=== PATIENT | male | born 1950 | race Caucasian/White ===

== ENCOUNTER → 2022-12-10 | Outpatient (CLI) | payer MEDICARE, SELFPAY ==
[2022-12-10 12:08] LABS: Platelet Count 139 K/mm3 (150-450); RET-HE 35.3 pg (30-35)
[2022-12-10 12:39] LABS: Ferritin 49 ng/mL (26-388); Iron 54 ug/dL (65-175); Iron Binding Capacity,Total 294 ug/dL (250-450); PERCENT IRON SATURATION 18.4 % (15.0-55.0)
[2022-12-11 04:07] LABS: Haptoglobin 101 mg/dL (34-355)
== END | disposition home or self-care (01) ==
LOC: MTLAB 10:02
PROVIDERS: PCP Internal Medicine; Referring Provider Internal Medicine; Visit Provider Internal Medicine
DX: D64.9 Anemia, unspecified (principal)
CPT/HCPCS: 36415; 82728; 83010; 83540; 83550; 85045

== ENCOUNTER → 2023-04-14 | Outpatient (CLI) | payer MEDICARE, SELFPAY ==
--- NOTE | 2023-04-14 08:00 | PROSBIL_PTH ---
PATIENT: KELLY MICHELLE LOC: [facility] U#:[id number] AGE/SX: 72/M ROOM: RE04/14/[address]: Dr. Ken Cooper MD : 1950 BED: DIS: 04/14/2023 SPEC #: [id number] RECD: 04/15/23 10:03 STATUS: GERALD KOTA #: [id number] SEEMA: 04/14/23 08:[address]: Ken Cooper DEPT: SURGICAL PATHOLOGY RECD BY: Delmi Hays ENTERED: 04/15/23 10:04 SP TYPE: PROST BX VENITA DR: Dr. Cynthia Reyna DO Tissues: A - PROSTATE RIGHT B - PROSTATE RIGHT C - PROSTATE RIGHT D - PROSTATE LEFT E - PROSTATE LEFT F - PROSTATE LEFT Procedures: PROSTATE BX HEADER OPERATION: Prostate biopsy PRE-OP DIAGNOSIS: Elevated PSA TISSUE SUBMITTED: A - Right apex, B - Right mid, C - Right base, D - Left apex, E - Left mid, F - Left base MICROSCOPIC DIAGNOSIS A. Right prostate, apex, core biopsy: Prostatic adenocarcinoma. Michael grade: 3+4=7 Number of cores involved: 2/2 Proportion of tissue involved: ~60-70% Perineural invasion: Present, focal. Greatest tumor length: 0.7 cm B. Right prostate, mid, core biopsy: Prostatic adenocarcinoma. [place] grade: 3+3=6 Number of cores involved: 1/2 Proportion of tissue involved: ~25% Perineural invasion: Not identified. Greatest tumor length: 0.3 cm See comment. C. Right prostate, base, core biopsy: Prostatic tissue, negative for malignancy. See comment. D. Left prostate, apex, core biopsy: Prostatic adenocarcinoma. [place] grade: 3+3=6 Number of cores involved: 1/2 Proportion of tissue involved: ~20% Perineural invasion: Present, focal. Greatest tumor length: 0.4 cm E. Left prostate, mid, core biopsy: Prostatic adenocarcinoma. [place] grade: 3+3=6 Number of cores involved: 1/2 Proportion of tissue involved: ~10% Perineural invasion: Not identified. Greatest tumor length: 0.2 cm Chronic inflammation. F. Left prostate, base, core biopsy: Prostatic tissue, negative for malignancy. SJ:ryan 04/18/2023 COMMENT B. Seminal vesicle tissue is present in the specimen and free of tumor. C. Seminal vesicle tissue is also present in the specimen. This case has been reviewed in consultation with Dr. Granda who concurs with the above diagnosis. MICROSCOPIC DESCRIPTION Slides are reviewed. GROSS DESCRIPTION A - Received is one container designated prostate, right apex. The specimen consists of two elongated fragments of light celeste-white soft tissue each measuring 1.0 cm in length and 0.1 cm in diameter. The specimen is totally submitted in one cassette. B - Received is one container designated prostate, right mid. The specimen consists of two elongated fragments of light celeste-white soft tissue each measuring 0.6 cm in length and 0.1 cm in diameter. The specimen is totally submitted in one cassette. C - Received is one container designated prostate, right base. The specimen consists of two elongated fragments of light celeste-white soft tissue measuring 0.5 and 1.0 cm in length and 0.1 cm in diameter. The specimen is totally submitted in one cassette. D - Received is one container designated prostate, left apex. The specimen consists of two elongated fragments of light celeste-white soft tissue each measuring 1.2 cm in length and 0.1 cm in diameter. The specimen is totally submitted in one cassette. E - Received is one container designated prostate, left mid. The specimen consists of two elongated fragments of light celeste-white soft tissue each measuring 1.1 cm in length and 0.1 cm in diameter. The specimen is totally submitted in one cassette. F - Received is one container designated prostate, left base. The specimen consists of two elongated fragments of light celeste-white soft tissue measuring 0.6 and 1.1 cm in length and 0.1 cm in diameter. The specimen is totally submitted in one cassette. / NANCY:ryan 04/15/2023 TC:0 CPT: G0146
== END | disposition home or self-care (01) ==
LOC: LABSPEC 16:13
PROVIDERS: PCP Internal Medicine; Referring Provider Urology; Visit Provider Urology
DX: R97.20 Elevated prostate specific antigen [PSA] (principal)
CPT/HCPCS: 88305; G0416

== ENCOUNTER → 2023-06-16 | Outpatient (CLI) | payer MEDICARE, SELFPAY ==
--- NOTE | 2023-06-16 06:35 | ECHOD_ITS ---
Reason For Study: Preop Procedure This was a 2D Doppler, Color Flow transthoracic echocardiogram. Exam performed in department. Left Ventricle Normal LV size. Left ventricular systolic function is normal. The estimated ejection fraction is 60 %. Stage 1 diastolic dysfunction. No regional wall motion abnormalities noted. Right Ventricle Normal RV size. Normal systolic function. Atria Normal left atrium. Normal right atrium. Mitral Valve Normal mitral valve. Mild (1+) mitral valve insufficiency. Tricuspid Valve Normal tricuspid valve. Mild (1+) tricuspid valve insufficiency. Pulmonary artery systolic pressure is 36 mmHg. Aortic Valve Trisinus/trileaflet aortic valve. Mild focal aortic valve calcification. Peak aortic valve gradient 19 mmHg. Mean aortic valve gradient 9 mmHg. Mild aortic stenosis. Mild (1+) aortic valve insufficiency. Pulmonic Valve Normal pulmonic valve. Great Vessels Normal aortic root. The pulmonary artery is normal size. Normal inferior vena cava. Pericardium/Pleural No pericardial effusion. MMode/2D Measurements & Calculations LVIDd: 5.0 cm IVSd: 1.2 cm LVOT diam: 2.0 cm LVIDs: 2.9 cm LVPWd: 1.1 cm LVOT area: 3.2 cm2 RVDd: 3.6 cm FS: 41.0 % Ao root diam: 3.0 cm LAV(MOD-bp): 49.7 ml LVAd ap4: 21.8 cm2 LAV(MOD-bp) Indexed: 24.6 ml/m2 LVLd ap4: 6.5 cm LAV(MOD-sp2): 57.4 ml EDV(MOD-sp4): 60.0 ml LAV(MOD-sp4): 42.4 ml EDV(sp4-el): 61.4 ml LVAs ap4: 10.4 cm2 LVLs ap4: 5.4 cm ESV(MOD-sp4): 17.3 ml ESV(sp4-el): 16.9 ml EF(MOD-sp4): 71.2 % EF(sp4-el): 72.5 % SV(MOD-sp4): 42.7 ml SV(sp4-el): 44.5 ml LA A4 area: 17.5 cm2 LA dimension(2D): 4.0 cm RA A4 area: 14.4 cm2 TAPSE: 2.4 cm Time Measurements MV dec time: 0.32 sec Doppler Measurements & Calculations MV E max hardy: 77.2 cm/sec Lat Peak E' Hardy: 8.0 cm/sec Med Peak E' Hardy: 5.9 cm/sec MV A max hardy: 107.2 cm/sec E/E' lat: 9.6 E/E' med: 13.2 MV E/A: 0.72 Ao V2 max: 217.7 cm/sec AI max hardy: 348.0 cm/sec MV dec slope: 244.9 cm/sec2 Ao max P.0 mmHg AI max P.5 mmHg Ao V2 mean: 145.5 cm/sec Ao mean P.9 mmHg AI dec slope: 126.3 cm/sec2 Ao V2 VTI: 56.4 cm AI P1/2t: 807.3 msec AV (velocity ratio): 0.63 ABBY(I,D): 2.0 cm2 ABBY(V,D): 1.9 cm2 LV V1 max: 130.1 cm/sec SV(LVOT): 114.8 ml PA V2 max: 115.3 cm/sec LV V1 max P.8 mmHg LV V1 mean P.5 mmHg LV V1 mean: 86.1 cm/sec LV V1 VTI: 35.3 cm TR max hardy: 282.0 cm/sec TR max P.8 mmHg ECHO/Echo Complete Interpretation Summary Normal LV size. Left ventricular systolic function is normal. The estimated ejection fraction is 60 %. Stage 1 diastolic dysfunction. Mild focal aortic valve calcification. Mean aortic valve gradient 9 mmHg. Mild aortic stenosis. Ordering Physician: Alfreda Workman Referring Physician: Cynthia Reyna Performed By: Sofie Hogan RDCS, RVT
--- NOTE | 2023-06-16 16:05 | STRESSREP ---
Stress Test Report Pharmacologic myocardial perfusion stress test. 72-year-old man with a history of hypertension preop for prostate surgery. Resting EKG demonstrates sinus bradycardia with a rate of 47 bpm. Resting blood pressure is 122/70 mmHg. 0.4 mg of regadenoson was infused per usual protocol followed by rapid intravenous saline flush injection. Continuous EKG monitoring was performed. The maximum heart rate was 61 bpm which was 40% of max impacted heart rate the maximum workload was 1 metabolic equivalent. At rest there were no ST or T wave changes noted to suggest ischemia and at peak infusion nonspecific ST changes were noted which did not meet the criteria for ischemia. No clinical angina is noted. The final blood pressure was 118/64 mmHg. Myocardial perfusion protocol. 11.8 mCi of technetium 99m sestamibi was injected at rest. 0.4 mg of regadenoson was infused per usual protocol. At peak infusion 35 mCi of technetium 99m sestamibi was injected stress images were obtained stress and rest images were reconstructed and compared in the short axis vertical long and horizontal long axis. Gated images were also obtained. Perfusion SPECT analysis: Review of the stress images demonstrate normal uptake of tracer noted in all areas of the myocardium. The resting images similar demonstrated normal uptake of tracer noted in all areas of the myocardium. No areas of reversibility are noted to suggest ischemia and no previous infarct is noted. Gated SPECT analysis: The gated ejection fraction is 72%. Conclusion: Normal pharmacologic myocardial perfusion stress test. Preserved ejection fraction.
== END | disposition home or self-care (01) ==
PROVIDERS: PCP Internal Medicine; Referring Provider Internal Medicine Cardiovascular Disease; Visit Provider Internal Medicine Cardiovascular Disease
DX: Z01.810 Encounter for preprocedural cardiovascular examination (principal); I34.0 Nonrheumatic mitral (valve) insufficiency; I07.1 Rheumatic tricuspid insufficiency
CPT/HCPCS: 78452; 93017; 93306; A9500; A4216; J2785

== ENCOUNTER 2023-07-06 05:58 | Day surgery (SDC) | payer MEDICARE, SELFPAY ==
[2023-07-06 06:48] VITALS: BP 112/50; PULSE 63; RESP 18; TEMP 36.2; O2SAT 95
[2023-07-06] MEDS: Lactated Ringers 1,000 ML 15 ML IV (06:56)
--- NOTE | 2023-07-06 07:50 | PCM.HP.STD ---
HPI - General General Date of Admission: 07/06/23 Date of Service: 07/06/23 Chief Complaint: Prostate cancer HPI Narrative KELLY MICHELLE, is a 73 M who presents for placement of gold markers and spacer gel he has prostate cancer and plans to have treatment with radiation therapy external beam , He has favorable intermediate risk prostate cancer and no hormone manipulation is recommended. 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 diabetes mellitus Constipation COPD (chronic obstructive pulmonary disease) Depressive disorder Dietary restriction Elevated PSA Gastric reflux Gout High cholesterol History of echocardiogram History of stress test Hypertension Injury of head and neck Insulin dependent diabetes mellitus Leg cramps Obesity On home oxygen therapy NANI (obstructive sleep apnea) Psoriatic arthritis Pulmonary embolism Pulmonary HTN Sjogrens syndrome Syncope Tremor Type 1 diabetes Vitamin D deficiency Wears glasses Home Medications allopurinol 300 mg tablet 300 mg PO BIDCM 04/25/14 [History Last Taken 07/05/23] aspirin 325 mg tablet 325 mg PO DAILY@0800 04/25/14 [History Last Taken 06/28/23] insulin aspart U-100 100 unit/mL (3 mL) subcutaneous pen (Novolog FlexPen U-100 Insulin aspart) 1 sliding scale dose subcut TIDCM 04/25/14 [History Last Taken 07/05/23] lansoprazole 30 mg capsule,delayed release (Prevacid) 30 mg PO DAILY 04/25/14 [History Last Taken 07/06/23] metoprolol succinate 25 mg tablet,extended release 24 hr 25 mg PO DAILY 04/25/14 [History Last Taken 07/06/23] divalproex 500 mg tablet,delayed release 500 mg PO BID 05/02/23 [History Last Taken 07/06/23] latanoprost 0.005 % eye drops 1 drp ophthalmic (eye) DAILY 05/02/23 [History Last Taken 07/05/23] losartan 25 mg tablet 25 mg PO DAILY 05/02/23 [History Last Taken 07/06/23] olanzapine 15 mg tablet (Zyprexa) 20 mg PO QHS 05/02/23 [History Last Taken 07/05/23] simvastatin 10 mg tablet 10 mg PO DAILY 05/02/23 [History Last Taken 07/05/23] benztropine 0.5 mg tablet 0.5 mg PO TID 05/26/23 [History Last Taken 07/05/23] cholecalciferol (vitamin D3) 50 mcg (2,000 unit) tablet (Vitamin D3) 50 mcg PO DAILY 05/26/23 [History Last Taken 07/05/23] insulin glargine 100 unit/mL subcutaneous solution (Lantus U-100 Insulin) 35 unit subcut QHS 06/06/23 [History Last Taken 07/05/23] multivitamin 1 tab PO DAILY 06/06/23 [History Last Taken 07/05/23] clonazepam 1 mg tablet 1 mg PO BID 06/07/23 [History Last Taken 07/06/23] Allergy/AdvReac Type Severity Reaction Status Date / Time ciprofloxacin [From Cipro] Allergy Unknown Verified 07/06/23 06:53 ciprofloxacin HCl Allergy Unknown Verified 07/06/23 06:53 [From Cipro] choline fenofibrate AdvReac Intermediate myalgias Verified 07/06/23 06:53 [From Trilipix] adhesive tape AdvReac Unknown Rash Verified 07/06/23 06:53 tramadol [From Ultram] AdvReac Unknown insomnia Verified 07/06/23 06:53 Family History Father Heart disease Myocardial infarction Brother Heart disease Myocardial infarction Mother Lung cancer Sister Colon cancer Surgical History History of carpal tunnel surgery of right wrist History of ERCP Hx of cholecystectomy Hx of colonoscopy Hx of inguinal hernia repair Hx of total knee replacement Social History household members: spouse Smoking Status: Current some day smoker tobacco type: smokeless tobacco Smokeless tobacco user: chewing tobacco alcohol intake: current substance use type: does not use caffeine: Yes Type: carbonated beverages Number of servings: 12 Vital Signs Vital Signs Vital Signs: 07/06/23 06:48 07/06/23 06:48 Temperature 97.2 F L Temperature Source Temporal Pulse Rate 63 Respiratory Rate 18 Respiratory Pattern Normal Blood Pressure 112/50 L Blood Pressure Mean 70 Blood Pressure Source Monitor Blood Pressure Position Semi-Fowlers Blood Pressure Location Right Arm Pulse Ox 95 Oxygen Delivery Method Room Air Weight Weight: 87 kg Body Mass Index (BMI) 30.0
[2023-07-06] MEDS: Cefazolin 2 GM in 0.9% Normal Saline (100mL Bag) 100 ML IV (08:04)
--- NOTE | 2023-07-06 08:14 | DCINST_ITS ---
Discharge Instructions Diet Discharge Diet: No restrictions Activity Discharge Activity: Return to Normal Activity and May Not Drive (while taking narcotic pain medications.) Dressing / Incision Call your doctor if you observe: Fever of 101 or Higher Follow Up Care Please Follow Up With: Ken Cooper MD When: Call [phone] for an appointment Test Results: Test results from this visit will be discussed in further detail at your follow- up appointment, if applicable. Discharge Plan Admission Primary Reason for Your Visit: Spacer markers Attending Provider: Ken Cooper Primary Care Provider: Cynthia Reyna Discharge Orders/Prescriptions Prescriptions: No Action divalproex 500 mg tablet,delayed release (DR/EC) 500 mg PO BID latanoprost 0.005 % drops 1 drp ophthalmic (eye) DAILY losartan 25 mg tablet 25 mg PO DAILY simvastatin 10 mg tablet 10 mg PO DAILY multivitamin Tablet 1 tab PO DAILY lansoprazole [Prevacid] 30 MG capsule 30 mg PO DAILY Patient Comments: ACID REFLUX MEDICATION allopurinol 300 MG tablet 300 mg PO BIDCM Patient Comments: GOUT MEDICATION metoprolol succinate 25 MG tablet 25 mg PO DAILY Patient Comments: BLOOD PRESSURE/HEART insulin aspart U-100 [Novolog FlexPen U-100 Insulin] 100 UNITS/ML insulin pen 1 sliding scale dose subcut TIDCM Patient Comments: REPORTS THAT PT TAKES SLIDING SCALE BASED ON WHAT GOING TO EAT AND BS RESULTS. ALSO REPORTS PT TAKES PRN DOSES IN BETWEEN. -DIABETIC MEDICATION aspirin 325 MG tablet 325 mg PO DAILY@0800 Patient Comments: BLOOD THINNER olanzapine [Zyprexa] 15 mg tablet 20 mg PO QHS Patient Comments: mental health clonazepam 1 mg tablet 1 mg PO BID Patient Comments: ANXIETY benztropine 0.5 mg tablet 0.5 mg PO TID cholecalciferol (vitamin D3) [Vitamin D3] 50 mcg (2,000 unit) tablet 50 mcg PO DAILY insulin glargine [Lantus U-100 Insulin] 100 unit/mL solution 35 unit SUBCUT QHS Patient Comments: INJECT 35 UNITS SUBCUTANEOUSLY EVERY DAY AT BEDTIME Referrals / Follow Up: Ken Cooper MD [Med Staff - Active Staff] - Cynthia Reyna DO [Primary Care Provider] - Disposition Disposition (needs filled in before D/C Order can be placed): Home, Self Care
[2023-07-06 08:23] LABS: Bedside Glucose 124 mg/dL (74-106)
--- NOTE | 2023-07-06 08:24 | OP.PCM_ITS ---
Report of Operation Date of Procedure: 07/06/23 Pre-Operative Diagnosis: Prostate cancer Post-Operative Diagnosis: The same Surgery/Procedure Performed:: catering director placement and spacer gel Description of Surgical Findings:: In the preoperative area I reviewed with the patient how the procedure is done we talked about the risk of the procedure including the risk of infection, bleeding, migration of the spacer gel, the patient is planning to have radiation to the prostate he understands that the spacer gel has demonstrated benefit in reducing the risk of toxicity from the ration radiation to the rectum but there is no guarantees that this spacer gel will prevent any serious complications or toxicity to the rectum or bowels. After reviewing this with the patient and his family organ to proceed with placement of a spacer gel matrix. Patient was taken back to the operating room after smooth induction of anesthesia he was placed supine on the table. The genitals and perineum were prepped and draped in usual sterile fashion. I then introduced a biplanar ultrasound probe into the rectum and performed ultrasonography and identified the Denonvilliers' fascia the prostate mid base and apex and seminal vesicles. The spacer gel mix was then prepared on the back table per manufactures instruction. Under ultrasound guidance in the midline perineum a bevel needle down we advanced through the perineum below the prostate into the space of Denonvilliers' fascia. This space which could be identified by ultrasound with a bright white layer between the prostate and the rectum. I then injected a puff of normal saline to identify the space further. After I confirmed that the needle was in the correct space in the mid prostate and the space of Denonvilliers' fascia between the rectum and the prostate. Then over the course of 15 seconds the gel matrix was injected slowly there was nice separation between the prostate and the rectum at the gel matrix was injected. The position of the gel matrix was confirmed by ultrasound. Then the injection needle was removed intact. The penis and testicles were prepped and draped in usual sterile fashion, ultrasound probe was placed into the rectum and biplanar ultrasound was performed on the prostate. Identified the base mid and apex of the prostate identified the transition zone prostate. Then using a needle the first customer quality engineer was placed into the right base of the prostate, the second customer quality engineer was placed in the left base of the prostate, and the third core marker was placed in the right apex of the prostate after all 3 markers were placed the placement of the markers were confirmed by ultrasonography.Patient's perineum was cleaned patient was taken out of stirrups and then taken back to the PACU in good condition.
[2023-07-06 08:36] VITALS: BP 112/53; PULSE 55; RESP 18; TEMP 36.1; O2SAT 98
[2023-07-06 08:38] VITALS: BP 107/51; BP 112/50; PULSE 50; RESP 18; O2SAT 97
[2023-07-06 08:45] VITALS: BP 112/50; BP 112/53; PULSE 53; RESP 16; O2SAT 97
[2023-07-06 08:51] VITALS: BP 112/50; BP 115/58; PULSE 51; RESP 18; TEMP 36.2; O2SAT 93
[2023-07-06 09:00] LABS: Bedside Glucose 111 mg/dL (74-106)
[2023-07-06 09:11] VITALS: BP 112/50
== END 2023-07-06 09:15 | disposition home or self-care (01) ==
LOC: SDC 06:00 → AC 06:02
PROVIDERS: PCP Internal Medicine; Referring Provider Urology; Visit Provider Urology
PROC: (CPT 55874; principal; 2023-07-06 07:45)
DX: C61 Malignant neoplasm of prostate (principal); J44.9 Chronic obstructive pulmonary disease, unspecified; F31.9 Bipolar disorder, unspecified; E10.22 Type 1 diabetes mellitus with diabetic chronic kidney disease; Z79.4 Long term (current) use of insulin; F17.220 Nicotine dependence, chewing tobacco, uncomplicated; G47.33 Obstructive sleep apnea (adult) (pediatric); N18.9 Chronic kidney disease, unspecified; E55.9 Vitamin D deficiency, unspecified; F41.9 Anxiety disorder, unspecified; K21.9 Gastro-esophageal reflux disease without esophagitis; M10.9 Gout, unspecified; E78.00 Pure hypercholesterolemia, unspecified; R25.1 Tremor, unspecified; I12.9 Hypertensive chronic kidney disease with stage 1 through stage 4 chronic kidney disease, or unspecified chronic kidney disease; Z79.82 Long term (current) use of aspirin; Z99.81 Dependence on supplemental oxygen; Z86.711 Personal history of pulmonary embolism
CPT/HCPCS: 55874; 55876; 00400; 82962; J7120; J2405

== ENCOUNTER → 2023-07-14 | Outpatient (CLI) | payer MEDICARE, SELFPAY ==
--- NOTE | 2023-07-14 10:18 | MRI_ITS ---
STUDY: MR PROSTATE GLAND/ PELVIS WITH T WITHOUT CONTRAST REASON FOR EXAM: Male, 73 years old. prostate cancer, eval disease extent -- planning for XRT TECHNIQUE: Standardized fat and water weighted pulse sequences were obtained in all 3 orthogonal planes, pre-and post contrast administration. IV 17 clariscan was administered for the contrast portion of the examination. COMPARISON: CT of abdomen and pelvis dated November 20, 2014 and July 12, 2023 FINDINGS: Prostate gland volume/size: 4.51 x 4.16 x 3.02 cm. There is a 3.76 x 4.1 cm lobular fluid-filled cystic mass posterior to the prostate gland and between the rectum which appears to be contiguous with the posterior capsule suggesting a postoperative encapsulated seroma or old hematoma. The wall of this cystic lesion and enhances but the central fluid components does not. On the diffusion-weighted sequence there are no discrete hyperintense nodules with associated ADC map signal. Anterior fibromuscular stroma: Unremarkable. Peripheral zone: Small cystic areas are present on both the right and left side but no focal mass is visualized. Mildly heterogeneous parenchyma without a focal dominant nodule or mass Central zone: Mildly heterogeneous without a dominant nodule Transitional zone: Mildly heterogeneous without a dominant nodule. Prostate capsule: Intact Seminal vesicles: Normal Pelvic sidewall lymphadenopathy: None present Bony structures: No lytic or blastic lesions or marrow edema. There is mild diffuse bladder wall thickening with trabeculation. Normal visualized small intestine. Normal visualized colon. There is no pelvic fluid. There is no pelvic mass lesion or lymphadenopathy. Normal abdominal wall. Small bilateral fat-containing hernias are present. MRI/Pelvis W/WO Contrast IMPRESSION: 1. Diffusely heterogeneous prostate parenchyma without a focal dominant nodule or mass. There is diffuse enhancement of the prostate parenchyma on the postcontrast study without a visualized focal lesion. 2. There is a 3.76 x 4.1 cm lobular fluid-filled cystic mass posterior to the prostate gland and between the rectum which appears to be contiguous with the posterior capsule suggesting a postoperative encapsulated seroma or old hematoma. The wall of this cystic lesion and enhances but the central fluid components does not. On the diffusion-weighted sequence there are no discrete hyperintense nodules with associated ADC map signal. 3. Mild diffuse bladder wall thickening with trabeculation Reference information: Normal prostate tissue Benign prostatic hypertrophy cancer/tumor - low signal peripheral , transitional, and central zones malignancy appears as bright on DWI and low signal on ADC map Prostate imaging-reporting and data system (PI-RADS) PI-RADS 1: very low (clinically significant cancer is highly unlikely to be present) PI-RADS 2: low (clinically significant cancer is unlikely to be present) PI-RADS 3: intermediate (the presence of clinically significant cancer is equivocal) PI-RADS 4: high (clinically significant cancer is likely to be present) PI-RADS 5: very high (clinically significant cancer is highly likely to be present) PI-RADS X: component of exam technically inadequate or not performed Prostate malignancy distribution: Peripheral zone: 70-80% Transitional zone: 10-20% Central zone: 5% or less . Electronically Signed: Pedro Luis Wilde MD at 12:49 EST ,
[2023-07-14 11:44] LABS: CREATININE FINGERSTICK < 1.0 mg/dL (0.70-1.30); EGFR FINGERSTICK > 60.0000 mL/min (>60)
== END | disposition home or self-care (01) ==
PROVIDERS: PCP Internal Medicine; Referring Provider Student in an Organized Health Care Education/Training Program; Visit Provider Student in an Organized Health Care Education/Training Program
DX: C61 Malignant neoplasm of prostate (principal)
CPT/HCPCS: 72197; A9575